=== PATIENT | female | born 1970 | race Caucasian/White ===

== ENCOUNTER → 2021-09-24 | Outpatient (CLI) | payer BC | END | disposition home or self-care (01) | LOC: RADMAMWWP 09:39 | PROVIDERS: ATTEND Family Medicine | DX: Z12.31 Encounter for screening mammogram for malignant neoplasm of breast (principal) | CPT/HCPCS: 77063; 77067 ==

== ENCOUNTER 2022-04-26 10:31 | Day surgery (SDC) | payer BC ==
[2022-04-22 16:48] VITALS: BMI 22.4
[~2022-04-26 10:31] MED LIST: LACTATED RINGERS 1,000 ML IV SCH; LIDOCAINE 1% (10MG/ML) FOR IV START INTRADERMA PRN; ONDANSETRON 4 MG/2 ML VIAL IVP PRN
[2022-04-26 11:35] VITALS: TEMP 98.2
[2022-04-26] MEDS ORDERED: LIDOCAINE 2% INJ 20 MG/ML (2 ML VIAL) ONE (12:16)
[2022-04-26] MEDS ORDERED: PROPOFOL 10 MG/ML 20 ML VIAL IV ONE (12:16)
--- NOTE | 2022-04-26 12:31 | P.PCN ---
Date of Procedure: 04/26/22 Procedure(s) Performed: BRIEF HISTORY: Patient is a 52-year-old pleasant white female scheduled for an elective colonoscopy as a part of screening for colon cancer. PROCEDURE PERFORMED: Colonoscopy. PREOPERATIVE DIAGNOSIS: Screening for colon cancer. IV sedation per Anesthesia. PROCEDURE: After informed consent was obtained, the patient, was brought into the endoscopy unit. IV sedation was administered by Anesthesia under continuous monitoring. Digital rectal examination was normal. Initially the Olympus CF-160 flexible video colonoscope was then inserted in the rectum, gradually advanced into the cecum without any difficulty. Careful examination was performed as the scope was gradually being withdrawn. Ileocecal valve and the appendiceal orifice were visualized and appeared normal. Prep was excellent. Mucosa of the cecum, ascending colon, transverse colon, descending colon, sigmoid colon, and rectum appeared normal. Retroflexion was performed in the rectum and grade 2 internal hemorrhoids were seen. The patient tolerated the procedure well. IMPRESSION: Normal-appearing colon from rectum to cecum with no evidence of colorectal neoplasia. Grade 2 internal hemorrhoids. RECOMMENDATIONS: Findings of this examination were discussed with the patient as well as a family. She was advised to have a repeat screening colonoscopy in 10 years..
[2022-04-26 12:50] VITALS: BP 117/81; PULSE 68; RESP 16
== END 2022-04-26 13:14 | disposition home or self-care (01) ==
LOC: ORWHC2ENDO 10:31
PROVIDERS: ATTEND Internal Medicine Gastroenterology
DX: Z12.11 Encounter for screening for malignant neoplasm of colon (principal); K64.1 Second degree hemorrhoids; E07.9 Disorder of thyroid, unspecified; M19.90 Unspecified osteoarthritis, unspecified site; Z90.49 Acquired absence of other specified parts of digestive tract; Z79.890 Hormone replacement therapy
CPT/HCPCS: 45378; J2704; J2001

== ENCOUNTER → 2022-04-28 | Outpatient (CLI) | payer BC ==
--- NOTE | 2022-04-28 09:35 | US ---
EXAMINATION TYPE: US abdomen complete DATE OF EXAM: 04/28/2022 COMPARISON: NONE CLINICAL HISTORY: R10.84 GENERALIZED ABDOMINAL PAIN. TECHNIQUE: Multiple sonographic images of the abdomen are obtained. FINDINGS: EXAM MEASUREMENTS: Liver Length: 13.1 cm Gallbladder Wall: Surgically absent CBD: 0.5 cm Spleen: 9.1 cm Right Kidney: 10.1 x 3.1 x 5.2 cm Left Kidney: 10.4 x 4.7 x 4.9 cm PRODUCT BUILDER NOTES: Pancreas: Partially obscured by bowel gas, portions visualized wnl Liver: wnl Gallbladder: Surgically absent Evidence for sonographic Stringer's sign: no CBD: wnl Spleen: wnl Right Kidney: wnl Left Kidney: Partially obscure by overlying bowel gas/rib shadowing, hyperechoic area superior measu ring 0.4 x 0.3 x 0.4cm Upper IVC: wnl Abd Aorta: wnl The liver is homogenous. The intrahepatic portion of the IVC and proximal abdominal aorta are within normal limits. Common bile duct is unremarkable. The visualized portions of the pancreas are homo genous. The spleen is unremarkable. Kidneys are symmetric and free of hydronephrosis. No renal les ions are seen. IMPRESSION: No discrete abnormality appreciated.
== END | disposition home or self-care (01) ==
LOC: RADUSWWP 07:02
PROVIDERS: ATTEND Family Medicine
DX: R10.84 Generalized abdominal pain (principal)
CPT/HCPCS: 76700

== ENCOUNTER → 2022-07-19 | Outpatient (CLI) | payer BC ==
--- NOTE | 2022-07-20 07:54 | US ---
EXAMINATION TYPE: US transvaginal DATE OF EXAM: 07/19/2022 COMPARISON: NONE CLINICAL HISTORY: 52-year-old female N95.0 POSTMENOPAUSAL BLEEDING. TECHNIQUE: Transvaginal (TV). FINDINGS: EXAM MEASUREMENTS: Uterus: 8.3 x 4.4 x 4.9 cm Endometrial Stripe: 4 mm Right Ovary: 4.9 x 2.9 x 3.8 cm Left Ovary: Obscured by overlying bowel gas. 1. Uterus: Anteroverted. There is a 7 x 6 x 4 mm cystic loculation along the fundal endometrium of u nclear etiology. 2. Endometrium: Otherwise, within normal limits. 3. Right Ovary: There is a large cystic lesion measuring 4.5 x 3.4 x 2.4 cm. A mural-based echogenic nodule measures 1.5 x 0.5 cm. 4. Left Ovary: Obscured by overlying bowel gas 5. Bilateral Adnexa: wnl 6. Posterior cul-de-sac: wnl IMPRESSION: 1. A 7 mm cystic locule along the fundal endometrium of unclear etiology. Otherwise, the endometrial stripe is normal thickness at 4 mm. Reassess at a 6-8 week follow-up. 2. Large cyst of the right ovary measuring 4.5 cm. This may have some internal complexity with a 1.5 cm mural nodule. This should also be reassessed at the follow-up. If it persists, consider SHEET METAL DUCT INSTALLER HELPER araseli luation. Correlate with CA-125 values in the meantime. 3. Unable to visualize the left ovary.
== END | disposition home or self-care (01) ==
LOC: RADUSWWP 16:21
PROVIDERS: ATTEND Family Medicine
DX: N83.201 Unspecified ovarian cyst, right side (principal); N95.0 Postmenopausal bleeding; N85.8 Other specified noninflammatory disorders of uterus
CPT/HCPCS: 76830

== ENCOUNTER → 2022-09-19 | Outpatient (CLI) | payer BC ==
--- NOTE | 2022-09-19 16:00 | CT ---
EXAMINATION TYPE: CT abdomen pelvis w con CT DLP: 353.4 mGycm, Automated exposure control for dose reduction was used. DATE OF EXAM: 09/19/2022 3:18 PM COMPARISON: Abdominal ultrasound 04/28/2022, transvaginal ultrasound 07/19/2022. CLINICAL INDICATION:Female, 52 years old with history of K57.32; intermittent sharp abdominal pain x years has worsened over the last couple weeks. hernia found on abdomen ultrasound. TECHNIQUE: Standard CT of the abdomen and pelvis following the administration of 100 cc of Isovue 3 00 IV contrast material and oral contrast. Coronal and sagittal reformats were performed. FINDINGS: LOWER CHEST: Unremarkable ABDOMEN LIVER: Unremarkable GALLBLADDER AND BILE DUCTS: Gallbladder is surgically absent with mild intrahepatic and extra hepatic biliary dilatation likely physiologic and a postcholecystectomy change. No evidence of choledocholit hiasis. PANCREAS: Unremarkable. SPLEEN: Unremarkable. ADRENAL GLANDS: Unremarkable. KIDNEYS AND URETERS: No evidence of hydronephrosis or renal calculus. The kidneys enhance symmetrical ly. Contrast is demonstrated within both collecting systems on the delayed phase. PELVIS BLADDER: Unremarkable REPRODUCTIVE: Prominent periuterine vasculature identified. Right adnexal 5.3 cm cystic lesion. ABDOMEN & PELVIS STOMACH AND BOWEL: Stomach and duodenum are unremarkable. No focal wall thickening or surrounding inf lammatory changes. Enteric contrast reaches the distal small bowel. No evidence of bowel obstruction. PERITONEUM: No evidence of pneumoperitoneum or free fluid. VASCULATURE: No evidence of aortic aneurysm. MUSCULOSKELETAL: No acute osseous abnormalities LYMPH NODES: No gross evidence for lymphadenopathy. SOFT TISSUE/ABDOMINAL WALL: Unremarkable. No sizable inguinal or umbilical hernia. IMPRESSION: 1. No acute abdominal/pelvic process. 2. Right ovarian cystic lesion measuring up to 5.3 cm corresponds to previously seen right ovarian cy stic lesion with mural nodule. Pelvic ultrasound is recommended for reassessment and consideration fo r [facility] consultation.
== END | disposition home or self-care (01) ==
LOC: RADCTMAIN 13:22
PROVIDERS: ATTEND Surgery
DX: N83.201 Unspecified ovarian cyst, right side (principal); K57.32 Diverticulitis of large intestine without perforation or abscess without bleeding; K46.9 Unspecified abdominal hernia without obstruction or gangrene
CPT/HCPCS: 74177; Q9967

== ENCOUNTER → 2022-11-03 | Outpatient (CLI) | payer BC ==
[2022-11-03 17:14] LABS: Basophils # (A) 0.03 X 10*3/uL (0.00-0.10); Basophils % (A) 0.5 %; Eosinophils # (A) 0.07 X 10*3/uL (0.04-0.35); Eosinophils % (A) 1.3 %; HCT 44.6 % (37.2-46.3); HGB 15.3 d/dL (12.0-15.0); Lymphocytes # (A) 1.38 X 10*3/uL (0.90-5.00); Lymphocytes % (A) 24.6 %; MCH 32.6 pg (27.0-32.0); MCHC 34.3 d/dL (32.0-37.0); MCV 95.1 FL (80.0-97.0); Mean Platelet Volume 9.2 FL (9.5-12.2); Monocytes # (A) 0.39 X 10*3/uL (0.20-1.00); NRBC Per 100 WBC 0 X 10*3/uL (0.00-0.01); Neutrophils # (A) 3.71 X 10*3/uL (1.80-7.70); Neutrophils % (A) 66.2 %; Platelet Count 296 X 10*3/uL (140-440); RBC 4.69 X 10*6/uL (4.10-5.20); RDW 12.7 % (11.5-14.5)
== END | disposition home or self-care (01) ==
LOC: LABPAT 10:12
PROVIDERS: ATTEND Obstetrics & Gynecology
DX: Z01.812 Encounter for preprocedural laboratory examination (principal); N84.0 Polyp of corpus uteri; N83.209 Unspecified ovarian cyst, unspecified side
CPT/HCPCS: 85025

== ENCOUNTER 2022-11-14 05:49 | Day surgery (SDC) | payer BC ==
[2022-11-04 17:49] VITALS: BMI 21.0
--- NOTE | 2022-11-10 17:20 | P.HPIHPCON ---
History of Present Illness H&P Date: 11/10/22 Chief Complaint: Persistent right ovarian cyst, chronic pelvic pain This is a 52 year old with postmenopausal bleeding, chronic pelvic pain, and a persistent right ovarian cyst who presents for surgical management today. She has had intermittent vaginal bleeding and spotting every 6 months for the past few years. Endometrial biopsy in the office was negative malignancy. Ultrasound showed a 5cm right ovarian cyst and a lesion on the endometrium suspicious for a polyp. Prior to the last episode of bleeding she starting taking an estrogen/progesterone/testosterone florinda. She has met with Dr. Altamirano who will be performing a hernia repair on the patient. Consent for Procedure: I have explained the operation/procedure to the patient, including the risks, benefits, side effects, alternative therapies (including not receiving the proposed treatment or service), the likelihood of the patient achieving his/her goals, and potential recuperation problems for the procedure/sedation/analgesia, as well as any blood products, if indicated. I also explained to the patient the risks, benefits and side effects of the alternatives, as well as the risks related to not receiving the proposed procedure, care, treatment, or services. Past Medical History Past Medical History: Thyroid Disorder History of Any Multi-Drug Resistant Organisms: None Reported Past Surgical History: Cholecystectomy Past Anesthesia/Blood Transfusion Reactions: No Reported Reaction Additional Psychological History / Comment(s): Pt. has recently lost her daughter Smoking Status: Never smoker Past Alcohol Use History: Occasional Past Drug Use History: None Reported - Past Family History Mother Family Medical History: No Reported History Medications and Allergies Home Medications Medication Instructions Recorded Confirmed Type Thyroid,Pork [Diesel Retrofit Designer Thyroid] 60 mg PO QAM 04/22/22 11/04/22 History Allergies Allergy/AdvReac Type Severity Reaction Status Date / Time No Known Allergies Allergy Verified 11/04/22 17:38 Assessment and Plan Assessment: 52 year old with postmenopausal bleeding, persistent right adnexal cyst, and chronic pelvic pain presenting for surgical management with Laparoscopic right cystectomy (possible right salpingoophorectomy, possible laparotomy), hysteroscopy D&C with myosure and polypectomy Plan: The risks, benefits, and alternatives to surgery including risk of bleeding, infection, possibility of laparotomy, possibility of salpingoophorectomy, damage to surrounding structures including bladder/bowel/ureters, uterine perforation, postoperative VTE. Patient understands these risks and desires to proceed with surgery as scheduled.
--- NOTE | 2022-11-10 17:54 | P.GSHP ---
History of Present Illness H&P Date: 11/10/22 Chief Complaint: Umbilical hernia 51-year-old female seen in the office in September. Patient has complaints of discomfort at the umbilicus which seemed to radiate and involve the lower quadrants as well. Increased pain with physical activities and also sometimes with eating. Patient found to have on examination and may a small reducible umbilical hernia. Patient also with a known ovarian cyst measuring 5 cm. She's been seen by gynecology with plans for laparoscopic right ovarian cystectomy. Past Medical History Past Medical History: Thyroid Disorder History of Any Multi-Drug Resistant Organisms: None Reported Past Surgical History: Cholecystectomy Past Anesthesia/Blood Transfusion Reactions: No Reported Reaction Additional Psychological History / Comment(s): Pt. has recently lost her daughter Smoking Status: Never smoker Past Alcohol Use History: Occasional Past Drug Use History: None Reported - Past Family History Mother Family Medical History: No Reported History Medications and Allergies Home Medications Medication Instructions Recorded Confirmed Type Thyroid,Pork [Cashier Or Checker Stock Clerk Thyroid] 60 mg PO QAM 04/22/22 11/04/22 History Allergies Allergy/AdvReac Type Severity Reaction Status Date / Time No Known Allergies Allergy Verified 11/04/22 17:38 Surgical - Exam Physical exam: General: Well-developed, well-nourished HEENT: Normocephalic, sclerae nonicteric Abdomen: Small reducible umbilical hernia with 1 cm or less in size fascial defect Extremities: No edema Neuro: Alert and oriented Assessment and Plan (1) Umbilical hernia Narrative/Plan: 52-year-old female with umbilical hernia. We'll proceed with open umbilical herniorrhaphy with possible mesh on 11/14. At the same time the patient will have gynecologic procedure described elsewhere. Risks of bleeding, infection, recurrence, bladder and bowel injury, numbness, nerve injury were discussed with the patient. The patient understands and wishes to proceed. Status: Acute Code(s): K42.9 - UMBILICAL HERNIA WITHOUT OBSTRUCTION OR GANGRENE SNOMED Code(s): 443748905
[~2022-11-14 05:49] MED LIST changes: +ACETAMINOPHEN TAB 500 MG TAB PO PRN; +HEPARIN SODIUM,PORCINE/PF 5,000 UNIT/0.5 ML SYRINGE SQ PRN; -LACTATED RINGERS 1,000 ML IV SCH; -LIDOCAINE 1% (10MG/ML) FOR IV START INTRADERMA PRN; -ONDANSETRON 4 MG/2 ML VIAL IVP PRN
[2022-11-14] MEDS ORDERED: SCOPOLAMINE 1 MG/72 HR PATCH TRANSDERM ONE (05:57)
[2022-11-14] MEDS ORDERED: DEXAMETHASONE SOD PHOSPHATE 4 MG/ML 1 ML VIAL IV ONE (05:57)
[2022-11-14] MEDS ORDERED: MIDAZOLAM 2 MG/2 ML VIAL IV PRN (05:57)
[2022-11-14] MEDS ORDERED: LACTATED RINGERS 1,000 ML IV SCH (05:57)
[2022-11-14] MEDS ORDERED: ONDANSETRON 4 MG/2 ML VIAL IVP ONE (05:57)
[2022-11-14] MEDS ORDERED: HYDROmorphone 0.5 MG/0.5 ML SYRINGE IVP PRN (07:00)
[2022-11-14 07:04] VITALS: RESP 16
[2022-11-14] MEDS ORDERED: NEOSTIGMINE 1 MG/ML 10 ML VIAL ONE (07:23)
[2022-11-14] MEDS ORDERED: GLYCOPYRROLATE 0.2 MG/ML 2 ML VIAL ONE (07:23)
[2022-11-14] MEDS ORDERED: ROCURONIUM 10 MG/ML (5 ML VIAL) IV ONE (07:23)
[2022-11-14] MEDS ORDERED: SUCCINYLCHOLINE CHLORIDE 200 MG/10 ML VIAL IV ONE (07:23)
[2022-11-14] MEDS ORDERED: KETOROLAC 30 MG/ML 1 ML VIAL ONE (07:23)
[2022-11-14] MEDS ORDERED: PROPOFOL 10 MG/ML 20 ML VIAL IV ONE (07:23)
[2022-11-14] MEDS ORDERED: LIDOCAINE 2% INJ 20 MG/ML (2 ML VIAL) ONE (07:23)
[2022-11-14] MEDS ORDERED: fentaNYL (PF) 50 MCG/ML 2 ML AMP ONE (07:23)
[2022-11-14] MEDS ORDERED: MIDAZOLAM 2 MG/2 ML VIAL ONE (07:23)
[2022-11-14] MEDS ORDERED: HYDROmorphone (PF) 1 MG/ML ONE (07:23)
[2022-11-14] MEDS ORDERED: DEXAMETHASONE SOD PHOSPHATE 10 MG/ML 1 ML VIAL ONE (07:23)
[2022-11-14] MEDS ORDERED: LACTATED RINGERS 1,000 ML IV ONE (08:09)
[2022-11-14] MEDS ORDERED: BUPIVACAINE (PF) 0.25% 30 ML VIAL SQ ONE ×2 (08:10→09:11)
--- NOTE | 2022-11-14 09:11 | P.OP ---
Date of Procedure: 11/14/22 Preoperative Diagnosis: 1. Persistent Complex Right Ovarian Cyst 2. Chronic Pelvic Pain 3. Postmenopausal Bleeding Postoperative Diagnosis: Same Procedure(s) Performed: Laparoscopic Right Salpingoophorectomy, Hysteroscopy Dilation and Curettage with MyoSure Reach Device Implants: None Anesthesia: EDIE Surgeon: Jayde Kang Estimated Blood Loss (ml): 10 IV fluids (ml): 700 Urine output (ml): 100 Pathology: other (right fallopian tube, right ovary, right ovarian cyst, e ndometrial curettings) Condition: stable Disposition: same day Indications for Procedure: 52 year old with postmenopausal bleeding, persistent right adnexal cyst, and chronic pelvic pain presenting for surgical management with Laparoscopic right cystectomy (possible right salpingoophorectomy, possible laparotomy), hys teroscopy D&C with myosure and polypectomy. The risks, benefits, and alternatives to surgery including risk of bleeding, infection, possibility of laparotomy, possibility of salpingoophorectomy, damage to surrounding structures including bladder/bowel/ureters, uterine perforation, postoperative VTE. Patient understands these risks and desires to proceed with surgery as scheduled. Operative Findings: Normal appearing pelvis and abdomen overall. Right ovary with approximately 5 centimeter cyst. Uterus sounded to 8 centimeters. On hysteroscopy, normal- appearing endometrium visualized. Global sampling performed. Bilateral ostia visualized and appear within normal limits. Description of Procedure: Patient was taken to the OR with IV fluid running and pneumatic compression stockings on both legs. General anesthesia was obtained without difficulty. The patient was placed in the dorsal lithotomy position with Bill-type stirrups with knees bent at 30 degree angles. Examination under anesthesia revealed a normal-sized, anteverted uterus. The patient as prepared and draped. The bladder was emptied. A speculum was placed into the vagina. The anterior lip of the cervix was grasped with a single-toothed tenaculum. The uterus was sounded to 8 centimeters. A uterine manipulator was introduced. A 5 millimeter incision was made just superior to the umbilicus and was dissected down to the fascia. The 5mm trocar was placed through the fascia. A horizontal skin incision was made at the umbilical fold. The pneumoperitoneum was established with CO2 gas to a pressure of 15mmHg. Intraabdominal survey revealed lack of any visceral or vascular injury. The pelvic and abdominal anatomy was noted as above. Two additional laparoscopic assist ports were placed in the right and left lower quadrants. An atraumatic grasper was used to pecan picker the fimbriated end of the left fallopian tube. The right ureter was visualized and noted to be far from t he IP ligament. The IP ligament was cauterized and cut with the LigaSure device, the ovary and fallopian tube were sequentially cauterized and cut away from the mesosalpinx. Finally the right uteroovarian ligament was cauterized and cut. The EndoCatch bag was used to remove the specimen through the left lower quadrant port. Excellent hemostasis was noted at the end of the case. At the left incisio n the fascia was closed with 2-0 Polysorb. The skin on bilateral lower quadrant incisions was closed with 4-0 Monocryl. The umbilical incision was left open for the ventral hernia repair to follow by Dr. Altamirano. Attention was then turned to the vaginal portion of the procedure. The anterior lip of the cervix was again grasped with a double toothed tenaculum after the weighted speculum is placed into the vagina. The Hanks dilators are placed and the cervix was dilated to accommodate the Myosure hysteroscope. The hysteroscope was then introduced and with saline infusion the cavity is distended. Bilateral ostia are noted along with shaggy proliferative type endometrium. The Myosure Reach device is inserted through the hysteroscope and global endometrial sampling is performed. All instruments were then removed from the vagina with excellent hemostasis again noted. All sponge needle and instrument counts are correct. Instrumentation is removed from the vagina and the patient is brought to the recovery room in stable condition.
[2022-11-14] MEDS ORDERED: traMADol 50 MG TAB PO STA (09:44)
[2022-11-14 09:46] VITALS: TEMP 96.8
--- NOTE | 2022-11-14 09:51 | P.OP ---
Date of Procedure: 11/14/22 Procedure(s) Performed: PREOPERATIVE DIAGNOSIS: Reducible umbilical hernia POSTOPERATIVE DIAGNOSIS: Same PROCEDURE: Open repair reducible umbilical hernia SURGEON: Dr. Altamirano ANESTHESIA: General OPERATIVE PROCEDURE DETAILS: The patient was placed in the operating table in the supine position. The patient was placed under general anesthesia. She was then placed in lithotomy. The abdomen and perineal region were prepped and draped sterilely. The patient had a previous scar that was horizontal above the umbilicus. This was re-incised. The hernia sac was identified and dissected down to the fascia where it was excised. Through the defect in the peritoneum a 5 mm trocar was advanced under direct visualization. A 0 Ethibond stitch was used to tighten the fascia around this 5 mm trocar. The case was then handed off to gynecology for their portion of the procedure. After they were done with their procedure the trocar was removed and the Ethibond was removed. The fascia was carefully dissected circumferentially. No additional defects were noted. Size of the fascial defect was 10 x 8 mm. This was closed horizontally using interrupted [id number] 0 Ethibond sutures. No mesh was utilized. The subcutaneous tissues were reapproximated using inverted 2-0 & 3-0 Vicryl sutures. The umbilicus was tacked back down to the fascia using a 2-0 Vicryl suture. The skin was closed using 4-0 Monocryl sutures. Skin glue and sterile dressings were then applied. HERNIA CHARACTERISTICS: Length: 10 mm Width: 8 mm Type: Umbilical PREOPERATIVE DISCUSSION ON SMOKING CESSASTION: Yes PREOPERATIVE DISCUSSION ON MORBID OBESITY: Yes PREOPERATIVE DISCUSSION ON APPROPRIATE USE OF NARCOTIC USE: Yes PREOPERATIVE EDUCATION: Multi Modal, Smoking Cessation and Weight Loss with BMI over 35. DISPOSITION: Stable to recovery room
[2022-11-14] MEDS ORDERED: traMADol 50 MG TAB PO ONE (11:06)
[2022-11-14 11:36] VITALS: BP 147/79; PULSE 60
[2022-11-14] MEDS ORDERED: ACETAMINOPHEN TAB 325 MG TAB PO SCH (12:00)
[2022-11-14] MEDS ORDERED: IBUPROFEN 600 MG TAB PO SCH (15:00)
== END 2022-11-14 12:48 | disposition home or self-care (01) ==
LOC: OR 05:49
PROVIDERS: ATTEND Obstetrics & Gynecology
DX: D27.0 Benign neoplasm of right ovary (principal); N85.8 Other specified noninflammatory disorders of uterus; G89.29 Other chronic pain; K42.9 Umbilical hernia without obstruction or gangrene; E07.9 Disorder of thyroid, unspecified; K21.9 Gastro-esophageal reflux disease without esophagitis; Z90.49 Acquired absence of other specified parts of digestive tract; F10.20 Alcohol dependence, uncomplicated; Z79.890 Hormone replacement therapy
CPT/HCPCS: 58558; 58661; 49593; 81025; J2250; J0330; J1100 ×2; J2710; J0690; J2405; J3010; J1885; J1170 ×2; J2704; J2001; 88302; 88305; 88307